=== PATIENT | female | born 1985 | race Caucasian/White ===

== ENCOUNTER 2016-07-18 00:57 | Emergency (ER) | payer OTHER | END 2016-07-18 03:30 | disposition left against medical advice (07) | LOC: ER1 00:57 | DX: Z53.21 Procedure and treatment not carried out due to patient leaving prior to being seen by health care provider (principal) ==

== ENCOUNTER 2020-05-27 22:57 | Emergency (ER) | payer OTHER ==
[~2020-05-27 22:57] MED LIST: COLACE 100MG C100 MG PO; NORCO 10-325 T1 EACH PO
== END 2020-05-28 01:07 | disposition home or self-care (01) ==
LOC: ER1 22:57
DX: U07.1 COVID-19 (principal); Z90.49 Acquired absence of other specified parts of digestive tract; Z90.710 Acquired absence of both cervix and uterus; F17.210 Nicotine dependence, cigarettes, uncomplicated
CPT/HCPCS: 0240U; 71045; 81001; 87081; 87880; 99283

== ENCOUNTER 2020-09-01 16:46 | Emergency (ER) | payer OTHER ==
[2020-09-01 20:33] LABS: HEMOGLOBIN 12.9 gm/dl (12.3-15.3); RED BLOOD COUNT 4.06 M/UL (4.00-5.10)
[2020-09-01 20:53] LABS: BUN/CREATININE RATIO 9 (0-10)
[2020-09-02] MEDS ORDERED: OMNICEF 300 MG300 MG PO (01:24)
[2020-09-02] MEDS ORDERED: ZOFRAN ODT 4 MG4 MG PO (01:24)
== END 2020-09-02 02:05 | disposition home or self-care (01) ==
LOC: ER1 16:46
PROVIDERS: Physician Assistant Medical
DX: U07.1 COVID-19 (principal); N39.0 Urinary tract infection, site not specified; N83.202 Unspecified ovarian cyst, left side; Z87.442 Personal history of urinary calculi; F17.210 Nicotine dependence, cigarettes, uncomplicated; Z90.49 Acquired absence of other specified parts of digestive tract; Z90.710 Acquired absence of both cervix and uterus
CPT/HCPCS: 80053; 81001; 83690; 85025; 87086; 96374; 96375; 99284; J0696; J2270; J2405; J7030; U0002